=== PATIENT | female | born 1995 | race Caucasian/White ===

== ENCOUNTER 2025-03-14 10:50 | Emergency (ER) | payer OTHER ==
[2025-03-14 10:58] VITALS: BMI 28.3
[2025-03-14] MEDS ORDERED: ONDANSETRON 4 MG/2 ML VIAL ONE (11:30)
[2025-03-14] MEDS: SODIUM CHLORIDE 0.9% 500 ML INFUS.BAG IV ONE (11:44)
[2025-03-14] MEDS: ONDANSETRON 4 MG/2 ML VIAL IVPUSH ONE (11:44)
[2025-03-14 11:57] LABS: ABSOLUTE IMMATURE GRANULOCYTES 0.05 x10^3/uL (0.0-0.031); BASOPHILS # 0.03 x10^3/uL (0.01-0.08); EOSINOPHIL % 0.0 % (0.7-5.8); EOSINOPHILS # 0.00 x10^3/uL (0.04-0.36); MCHC 31.6 g/dl (32.2-35.5); MEAN CELL VOLUME 88.6 fl (79.4-94.8); MEAN PLT VOLUME 12.7 fl (9.4-12.3); MONOCYTE # 0.44 x10^3/uL (0.24-0.86); MONOCYTE % 3.5 % (4.7-12.5); RDW 12.5 % (12.1-16.5)
[2025-03-14 12:00] LABS: HCG,QUALITATIVE URINE Negative; URINE APPEARANCE CLOUDY; URINE BILIRUBIN NEGATIVE (NEGATIVE); URINE COLOR DK YELLOW; URINE GLUCOSE (UA) NEGATIVE (NEGATIVE); URINE KETONE 2+ (NEGATIVE)
[2025-03-14 12:01] LABS: URINE LEUK ESTERASE NEGATIVE (NEGATIVE); URINE NITRITE NEGATIVE (NEGATIVE); URINE PROTEIN 1+ (NEGATIVE); URINE UROBILINOGEN 0.2 mg/dL (0.2-1.0)
[2025-03-14 12:08] LABS: GLUCOSE,RANDOM 86.0 mg/dL (74-106); TOT PROT 8.5 g/dl (6.4-8.2)
[2025-03-14 12:09] LABS: CO2 25.0 mmol/L (21-32)
[2025-03-14 12:11] LABS: ALK PHOS 67.0 U/L (40-150)
[2025-03-14 12:14] LABS: CREATININE 0.71 mg/dL (0.55-1.3); SGOT/AST 23.0 U/L (5-34); SGPT/ALT 30.0 U/L (0-55)
[2025-03-14 12:34] LABS: HCV DIAGNOSTIC IN-HOUSE W/RFLX NON-REACTIVE (NONREACTIVE); HIV INTERPRETATION NEGATIVE (NEGATIVE)
[2025-03-14 13:49] VITALS: BP 131/89; PULSE 99; RESP 18; TEMP 97.7
[2025-03-14] MEDS ORDERED: FAMOTIDINE 20 MG TABLET ONE (14:45)
[2025-03-14] MEDS ORDERED: MAG HYDROX/AL HYDROX/SIMETH 30 ML UNIT-DOSE CUP ONE (14:46)
[2025-03-14] MEDS: FAMOTIDINE 20 MG TABLET PO ONE (14:48)
[2025-03-14] MEDS: MAG HYDROX/AL HYDROX/SIMETH -MYLANTA- ORAL SUSPENSION PO ONE (14:48)
== END 2025-03-14 16:10 | disposition home or self-care (01) ==
LOC: JER 10:50
PROC: 3E033GC Introduction of Other Therapeutic Substance into Peripheral Vein, Percutaneous Approach (ICD-10-PCS; principal; 2025-03-14)
DX: K29.00 Acute gastritis without bleeding (principal); R11.2 Nausea with vomiting, unspecified; R00.0 Tachycardia, unspecified; R53.83 Other fatigue; R10.13 Epigastric pain; R10.24 Suprapubic pain
CPT/HCPCS: 36415; 76705-TC; 80053; 81003; 84703; 85025; 86803; 87389; 87637-QW; 99285-25